=== PATIENT | female | born 1995 | race Caucasian/White ===

== ENCOUNTER 2017-08-01 11:09 | Emergency (ER) | payer OTHER | END 2017-08-01 16:01 | disposition home or self-care (01) | LOC: M ED 11:09 | DX: J30.9 Allergic rhinitis, unspecified (principal); F32.9 Major depressive disorder, single episode, unspecified; F41.9 Anxiety disorder, unspecified; L03.90 Cellulitis, unspecified; R42 Dizziness and giddiness; R11.0 Nausea; F17.210 Nicotine dependence, cigarettes, uncomplicated; Z79.899 Other long term (current) drug therapy; Z81.8 Family history of other mental and behavioral disorders | CPT/HCPCS: 99283 ==

== ENCOUNTER 2018-01-04 11:25 | Emergency (ER) | payer OTHER ==
[2018-01-04 13:08] LABS: KETONE, URINE AUTO RFX NEGATIVE (NEGATIVE); LEUKOCYTE ESTERASE UR AUTO RFX NEGATIVE (NEGATIVE); MUCUS, URINE RFX SMALL (NEGATIVE); NITRITE, URINE AUTO RFX NEGATIVE (NEGATIVE); RBC, URINE AUTO RFX 3 /HPF (0-3); SPECIFIC GRAVITY UR AUTO RFX 1.019 (1.002-1.035); SQUAM EPITHELIAL CELL UR AURFX 2 /HPF (0-6); WBC, URINE AUTO RFX 3 /HPF (0-3)
== END 2018-01-04 14:03 | disposition home or self-care (01) ==
LOC: M ED 11:25
DX: N83.201 Unspecified ovarian cyst, right side (principal); E28.2 Polycystic ovarian syndrome; Z79.899 Other long term (current) drug therapy
CPT/HCPCS: 76856